=== PATIENT | male | born 1975 | race Caucasian/White ===

== ENCOUNTER 2016-10-21 16:50 | Emergency (ER) | payer OTHER ==
[2016-10-21] MEDS ORDERED: TORAdol 30 mg Injection IV ONE (16:55)
[2016-10-21] MEDS ORDERED: TORAdol 30 mg Injection ONE (16:58)
[2016-10-21] MEDS ORDERED: solu-MEDROL 125 MG IV ONE (16:58)
[2016-10-21] MEDS ORDERED: DUONEB 0.5-3 MG/3 ml Neb IH ONE ×2 (16:58→17:22)
[2016-10-21] MEDS ORDERED: Norflex 60 MG/2 ML IM ONE (17:00)
--- NOTE | 2016-10-21 17:05 | ERPHSYRPT ---
- History of Present Illness Time Seen by Provider: 10/21/16 16:55 Source: patient, EMS Exam Limitations: no limitations Patient Subjective Stated Complaint: states has had back spasms for 2 days Triage Nursing Assessment: back pain. states has had mid/lower back pain for 2 days with intermitent pain down lt leg to foot. no injury. was walking to vehicle and 'couldnt walk anymore and laid down on ground'. no bruising or swelling to back. pain slight relieved with knees flexed. audible wheezes noted. Physician History: patient with increasing lower back pain x 2-3 days; walking carrying a laundry basket when his legs buckled and he went down; pain in middle lower back and radiates down left leg to knee; no paraesthesias; no incontinence; no prior injury; prior hx of lower back pain; no other complaints or injuries; no head or neck trauma Timing/Duration: today (fell), day(s) (2-3 day hx), gradual onset, worse Method of Injury: unknown Quality: aching Back Pain Location: lumbar spine Back Pain Radiation: upper legs (left) Severity of Pain-Max: severe (10) Severity of Pain-Current: moderate (7) Modifying Factors: Improves With: immobilization ( wiht knees bent helps), movement (aggravates), pain medication (helps) Associated Symptoms: lower back pain, muscle spasms, No fever, No urinary incontinence, No loss of bowel control, No constipation, No nausea, No vomiting , No problems urinating, No numbness in legs/feet, No weakness, No sensory/ motor loss, No tingling in legs/feet Previous symptoms: no prior history Allergies/Adverse Reactions: No Known Drug Allergies Allergy (Unverified 10/21/16 16:58) Home Medications: Fluticasone/Salmeterol 115/21 [Advair Hfa 115/21 COMMON CANISTER] 2 puff IH BID 06/02/13 [History] Albuterol Sulfate [Proair Hfa] 8.5 gm IH Q4HPRN PRN 10/21/16 [History] Hx Tetanus, Diphtheria Vaccination/Date Given: Yes Hx Influenza Vaccination/Date Given: No Hx Pneumococcal Vaccination/Date Given: No Immunizations Up to Date: Yes - Review of Systems Constitutional: No Symptoms Eyes: No Symptoms Ears, Nose, & Throat: No Symptoms Respiratory: Cough (chronic ), Wheezing (chronic), No Cyanosis, No Dyspnea, No Dyspnea on 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), No Stridor Cardiac: No Chest Pain, No Palpitations, No Syncope Abdominal/Gastrointestinal: No Abdominal Pain, No Nausea, No Vomiting, No Diarrhea Genitourinary Symptoms: No Dysuria, No Hematuria, No Incontinence, No Urgency, No Urinary Retention, No Testicle Pain Musculoskeletal: Back Pain, Fall (AFTER HAVING BACK PAIN AND LEGS GAVE OUT), No Neck Pain, No Injury, No Myalgias Skin: No Symptoms Neurological: No Focal Weakness, No Headache, No Paralysis, No Parasthesia, No Seizure, No Sensory Changes Psychological: No Symptoms Endocrine: No Symptoms Hematologic/Lymphatic: No Symptoms Immunological/Allergic: No Symptoms - Past Medical History Pertinent Past Medical History: Yes Respiratory History: Asthma - Past Surgical History Past Surgical History: Yes Other Surgical History: rt thumb repair - Social History Smoking Status: Former smoker Exposure to second hand smoke: Yes Alcohol Use: Socially Drug Use: none Patient Lives Alone: No Significant Family History: no pertinent family hx - Nursing Vital Signs Temperature: 98.3 F Temperature Source: Oral Pulse Rate: 95 Respiratory Rate: 18 Blood Pressure: 169/108 Pain Intensity: 7 - Physical Exam General Appearance: severe distress (BACK PAIN), alert, obese Eye Exam: PERRL/EOMI, eyes nml inspection Ears, Nose, Throat Exam: normal ENT inspection, TMs normal, pharynx normal, moist mucous membranes Neck Exam: normal inspection, non-tender, supple, full range of motion, No meningismus, No JVD, No subcutaneous emphysema Respiratory Exam: respiratory distress (MILD TACHYPNEA), airway intact, diminished breath sounds, prolonged expirations, wheezing (DIFFUSE), No normal breath sounds, No chest tenderness, No stridor Cardiovascular Exam: regular rate/rhythm, normal heart sounds, normal peripheral pulses, capillary refill <2 sec, No murmur Gastrointestinal Exam: soft, normal bowel sounds, distention (SOFT), No tenderness, No mass, No guarding, No rebound, No organomegaly Male [place] Exam: normal genitalia Rectal Exam: deferred Back Exam: normal inspection, decreased range of motion, muscle spasm ( BILATERAL LOWER LUMBAR), No normal range of motion (DECREASED DUE TO PAIN AND SPASM), No CVA tenderness, No vertebral tenderness, No rash, No point tenderness Extremity Exam: normal inspection, pelvis stable, other, No normal range of motion (decreased straight leg raising L>R; ), No parasthesia, No paralysis, No lauryn's sign, No joint swelling, No pedal edema, No tenderness Neurologic Exam: alert, oriented x 3, cooperative, 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, normal mood/affect, sensation nml, other (DTR's 4+ bilateral; no clonus), No nml station & gait (pain), No motor deficits, No motor weakness Skin Exam: normal color, warm, dry, No rash, No petechiae SpO2: 95 Oxygen Delivery: Room Air - Course Nursing assessment & vital signs reviewed: Yes - Radiology Exams L-Spine X-ray Interpretation: Interpreted by me, Negative, No Fracture Ordered Tests: Active Orders 24 hr Category Date Time Status IV Insertion STAT Care 10/21/16 16:55 Active Re-Check Vital Signs STAT Care 10/21/16 16:55 Active LUMBAR COMPLETE (MIN 4 VIEWS) Stat Exams 10/21/16 16:55 Taken Peak Expiratory Flow Rate ONCE RT 10/21/16 16:58 Completed Respiratory Nebulizer STAT RT 10/21/16 16:58 Completed Medication Summary Discontinued Medications Generic Name Dose Route Start Last Admin Trade Name Freq PRN Reason Stop Dose Admin Albuterol/Ipratropium 3 ml 10/21/16 16:58 10/21/16 17:26 Duoneb 0.5-3 Mg/3 Ml Neb IH 10/21/16 16:59 3 ml STAT ONE Administration Albuterol/Ipratropium Confirm 10/21/16 17:22 Duoneb 0.5-3 Mg/3 Ml Neb Administered 10/21/16 17:23 Dose 3 ml IH .STK-MED ONE Hydromorphone HCl 1 mg 10/21/16 17:47 10/21/16 17:52 Dilaudid 1 Mg/Ml Injection IV 10/21/16 17:48 1 mg STAT ONE Administration Hydromorphone HCl Confirm 10/21/16 17:50 Dilaudid 1 Mg/Ml Injection Administered 10/21/16 17:51 Dose 1 mg .ROUTE .STK-MED ONE Ketorolac Tromethamine 60 mg 10/21/16 16:55 10/21/16 17:00 Toradol 30 Mg Injection IV 10/21/16 16:56 60 mg STAT ONE Administration Ketorolac Tromethamine Confirm 10/21/16 16:58 Toradol 30 Mg Injection Administered 10/21/16 16:59 Dose 60 mg .ROUTE .STK-MED ONE Methylprednisolone Sodium Succinate 125 mg 10/21/16 16:58 10/21/16 17:22 Solu-Medrol 125 Mg IV 10/21/16 16:59 125 mg STAT ONE Administration Methylprednisolone Sodium Succinate Confirm 10/21/16 17:06 Solu-Medrol 125 Mg Administered 10/21/16 17:07 Dose 125 mg .ROUTE .STK-MED ONE Orphenadrine Citrate 60 mg 10/21/16 17:00 10/21/16 17:22 Norflex 60 Mg/2 Ml IM 10/21/16 17:01 60 mg STAT ONE Administration Orphenadrine Citrate Confirm 10/21/16 17:06 Norflex 60 Mg/2 Ml Administered 10/21/16 17:07 Dose 60 mg .ROUTE .STK-MED ONE - Progress Progress: improved (after meds), re-examined (after xr and meds) Progress Note: 10/21/16 17:08 examined; meds ordered; xr ordered; arrived; patient to xr; will recheck after return 10/21/16 17:29 at bedside; some releif of pain wiht meds; patient still wheezing so given a Duoneb treamtne; XR negative - results shared with patient and ; will recheck 10/21/16 17:47 recheck post resp tx and peak floow imporved from 150 to 260; wheezing and resp distress resolved; back pain improvong but exacerbates with movement; will medicate and recheck; 10/21/16 18:06 recheck and pain much improved; can straighten legs and smile; instructions given; questions answered;will d/c at bedside Counseled pt/family regarding: diagnosis, need for follow-up, rad results - Departure Time of Disposition: 18:07 Departure Disposition: Home Clinical Impression: Asthma, Back pain with left-sided sciatica Condition: Good Critical Care Time: No Referrals: MITCHELL PETERSON [Primary Care Provider] - Instructions: Low Back Pain Additional Instructions: Back pain instructions. Rest, ice x 24-48 hours, then warm compresses; no heavy lifting (>20#'s) x 3-5 days; call [facility] or [facility] Med doctor in am for follow up appointment and or referral as needed. Return if problems. Take meds as prescribed. Follow-up with family doctor as directed. Call for appointment. Return if any problems. If you smoke please stop. Call or follow up with your family doctor for assistance if you need it to stop. Please wear your seatbelt when driving. Have a nice day. Thank you for allowing us to participate in your care today. :o) Dr Jake Ellington Prescriptions: Chlorzoxazone [Parafon Forte Dsc] 500 mg PO QID #20 tablet Hydrocodone/Ibuprofen [Vicoprofen 200-7.5 mg Tab] 1 each PO Q4-6HPRN PRN #14 tablet PRN Reason: Pain
[2016-10-21] MEDS ORDERED: solu-MEDROL 125 MG ONE (17:06)
[2016-10-21] MEDS ORDERED: Norflex 60 MG/2 ML ONE (17:06)
[2016-10-21] MEDS ORDERED: DILAUDID 1 MG/ML INJECTION IV ONE (17:47)
[2016-10-21] MEDS ORDERED: DILAUDID 1 MG/ML INJECTION ONE (17:50)
[2016-10-21 18:08] VITALS: O2SAT 95
[2016-10-21 18:26] VITALS: BP 133/83; PULSE 80
--- NOTE | 2016-10-22 08:39 | XRAY ---
Indication: Severe low back pain. No known injury. Comparison: None 5 views of the lumbar spine demonstrates 5 lumbar vertebral segments in normal alignment. Oblique views degraded by motion artifact. Mild L5-S1 degenerative disc space narrowing, mild bilateral degenerative facet arthropathy, and suspect bilateral L5 spondylolysis. No acute fracture, subluxation, or suspicious bony lesions. Visualized soft tissues unremarkable. Impression: L5-S1 degenerative disc disease. Suspect bilateral L5 spondylolysis without spondylolisthesis.
== END 2016-10-21 18:26 | disposition home or self-care (01) ==
LOC: ED 16:50
DX: J45.909 Unspecified asthma, uncomplicated (principal); M54.32 Sciatica, left side; M54.9 Dorsalgia, unspecified; M54.5 Low back pain; M62.830 Muscle spasm of back; Z79.899 Other long term (current) drug therapy; R05 Cough; R06.2 Wheezing
CPT/HCPCS: 36000; 72110; 94150; 94640; 96372; 96374; 96375; 99283; J1170; J1885; J2360; J2930

== ENCOUNTER 2018-01-20 09:09 | Inpatient (IN) | payer OTHER ==
[2018-01-20] MEDS ORDERED: DUONEB 0.5-3 MG/3 ml Neb IH ONE ×2 (09:17→09:20)
--- NOTE | 2018-01-20 09:42 | ERPHSYRPT ---
- History of Present Illness Time Seen by Provider: 01/20/18 09:29 Source: patient Exam Limitations: no limitations Patient Subjective Stated Complaint: Cough and "Not feeling well" since Thursday. Increasing SOB today Triage Nursing Assessment: Pt presents to the ED with complaints of SOB since 0500 today. Pt states hx of asthma and states he has not felt normal x2 days. Pt states bilateral shoulder pain, denies chest pain. Skin PWD. Pt appears anxious on arrival. Physician History: The patient is a 42-year-old male complaining of not feeling well for 2 days but this morning he began having increasing shortness of breath. He has a history of asthma and took 2 albuterol treatments earlier. This did not help. He saw [facility] this morning and was noted to have low O2 sat of about 82%. He then comes to the ER. His daughter had been diagnosed with strep throat last week. He now also has a sore throat for 2 days. He's had a mild cough as well. He describes some chest tightness and difficulty breathing today. He has a past medical history of asthma. He believes he did obtain an influenza vaccination for this year. Timing/Duration: day(s) (2) Activities at Onset: none Severity of Dyspnea-Max: moderate Severity of Dyspnea-Current: moderate Possible Cause: occasional episodes, illness exposure Modifying Factors: Improves With: albuterol nebulizer, exertion Associated Symptoms: cough, wheezing Allergies/Adverse Reactions: No Known Drug Allergies Allergy (Verified 01/20/18 09:22) Home Medications: Albuterol Sulfate [Proair Hfa] 8.5 gm IH Q4HPRN PRN 10/21/16 [History] Hx Tetanus, Diphtheria Vaccination/Date Given: Yes Hx Influenza Vaccination/Date Given: Yes Hx Pneumococcal Vaccination/Date Given: No Immunizations Up to Date: Yes - Review of Systems Constitutional: No Fever, No Chills Eyes: No Symptoms Ears, Nose, & Throat: Throat Pain Respiratory: Cough, Dyspnea, Dyspnea on 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), Wheezing Cardiac: No Chest Pain, No Edema, No Syncope Abdominal/Gastrointestinal: No Abdominal Pain, No Nausea, No Vomiting, No Diarrhea Genitourinary Symptoms: No Dysuria Musculoskeletal: No Back Pain, No Neck Pain Skin: No Rash Neurological: No Dizziness, No Focal Weakness, No Sensory Changes Psychological: No Symptoms Endocrine: No Symptoms Hematologic/Lymphatic: No Symptoms Immunological/Allergic: No Symptoms All Other Systems: Reviewed and Negative - Past Medical History Pertinent Past Medical History: Yes Respiratory History: Asthma - Past Surgical History Past Surgical History: Yes Other Surgical History: rt thumb repair - Social History Smoking Status: Former smoker Exposure to second hand smoke: Yes Alcohol Use: Socially Drug Use: none Patient Lives Alone: No Significant Family History: no pertinent family hx - Nursing Vital Signs Nursing Vital Signs: Initial Vital Signs Temperature 99.4 F 01/20/18 09:13 Pulse Rate 130 H 01/20/18 09:13 Respiratory Rate 24 01/20/18 09:13 Blood Pressure 114/72 01/20/18 09:13 O2 Sat by Pulse Oximetry 82 L 01/20/18 09:13 Pain Scale Pain Intensity 0 - Physical Exam General Appearance: moderate distress Eye Exam: PERRL/EOMI Ears, Nose, Throat Exam: pharyngeal erythema Neck Exam: normal inspection, supple Respiratory Exam: diminished breath sounds, prolonged expirations, wheezing Cardiovascular/Chest Exam: normal heart sounds, tachycardia Abdominal/Gastrointestinal Exam: soft, No tenderness, No distention, No mass Rectal Exam: not done Extremity Exam: non-tender, normal range of motion, normal inspection, no calf tenderness, no pedal edema Neurologic Exam: alert, oriented x 3, cooperative, byproducts operator II-XII nml as tested, sensation nml, No motor deficits Skin Exam: normal color, warm, No dry SpO2 Interpretation: normal SpO2: 82 Oxygen Delivery: Room Air - Course EKG Interpreted by Me: Sinus Tach, NORMAL AXIS, NORMAL INTERVALS, NORMAL QRS, NORMAL ST-T - Radiology Exams Chest X-ray Interpretation: Reviewed by me, Teleradiologist Report, Negative (per DR Andrade.) Ordered Tests: Active Orders 24 hr Category Date Time Status Family And Consumer Education Teacher STAT Care 01/20/18 09:44 Active EKG-ER Only STAT Care 01/20/18 09:43 Active IV Insertion STAT Care 01/20/18 09:43 Active Oxygen-ED Only NASAL CANNULA 4 lpm Care 01/20/18 09:43 Active Pulse Oximetry (ED) STAT Care 01/20/18 09:43 Active CHEST 2 VIEWS (PA AND LAT) Stat Exams 01/20/18 10:07 Completed BLOOD CULTURE Stat Lab 01/20/18 10:15 Received CBC W DIFF Stat Lab 01/20/18 09:20 Completed CMP Stat Lab 01/20/18 09:20 Completed CULTURE, THROAT Stat Lab 01/20/18 10:15 Received Lactic Acid Stat Lab 01/20/18 09:50 Results STREP SCREEN-BETA A Stat Lab 01/20/18 10:15 Completed Respiratory Nebulizer STAT RT 01/20/18 09:20 Completed Respiratory Nebulizer STAT RT 01/20/18 11:07 Ordered Medication Summary Discontinued Medications Generic Name Dose Route Start Last Admin Trade Name [place] PRN Reason Stop Dose Admin Albuterol Sulfate 2.5 mg 01/20/18 11:07 Proventil 2.5 Mg/3 Ml Neb IH 01/20/18 11:08 STAT ONE Albuterol/Ipratropium 3 ml 01/20/18 09:20 01/20/18 09:23 Duoneb 0.5-3 Mg/3 Ml Neb IH 01/20/18 09:21 3 ml STAT ONE Administration Albuterol/Ipratropium Confirm 01/20/18 09:17 Duoneb 0.5-3 Mg/3 Ml Neb Administered 01/20/18 09:18 Dose 3 ml IH .STK-MED ONE Sodium Chloride 1,000 mls @ 999 mls/hr 01/20/18 09:56 01/20/18 10:09 Sodium Chloride 0.9% 1000 Ml IV 01/20/18 10:56 999 mls/hr .Q1H1M STA Administration Sodium Chloride Confirm 01/20/18 10:07 Sodium Chloride 0.9% 1000 Ml Administered 01/20/18 10:08 Dose 1,000 mls @ ud .ROUTE .STK-MED ONE Methylprednisolone Sodium Succinate 125 mg 01/20/18 09:43 01/20/18 09:51 Solu-Medrol 125 Mg IV 01/20/18 09:44 125 mg STAT ONE Administration Methylprednisolone Sodium Succinate Confirm 01/20/18 09:50 Solu-Medrol 125 Mg Administered 01/20/18 09:51 Dose 125 mg .ROUTE .STK-MED ONE Lab/Rad Data: Laboratory Result Diagrams 01/20/18 09:20 01/20/18 09:20 Laboratory Results 01/20/18 01/20/18 01/20/18 Range/Units 10:15 10:15 09:50 WBC (4.0-10.5) K/mm3 RBC (4.1-5.6) M/mm3 Hgb (12.5-18.0) gm/dl Hct (42-50) % MCV (78-100) fl MCH (26-32) pg MCHC (32-36) g/dl RDW (11.5-14.0) % Plt Count (150-450) K/mm3 MPV (6-9.5) fl Gran % (36.0-66.0) % Eos # (Auto) (0-0.5) Absolute Lymphs (auto) (1.0-4.6) Absolute Monos (auto) (0.0-1.3) Lymphocytes % (24.0-44.0) % Monocytes % (0.0-12.0) % Eosinophils % (0.00-5.0) % Basophils % (0.0-0.4) % Absolute Granulocytes (1.4-6.9) Basophils # (0-0.4) Sodium (137-145) mmol/L Potassium (3.5-5.1) mmol/L Chloride (98-107) mmol/L Carbon Dioxide (22-30) mmol/L Anion Gap (5-15) MEQ/L BUN (9-20) mg/dL Creatinine (0.66-1.25) mg/dL Estimated GFR ML/MIN Glucose (74-106) mg/dL Lactic Acid 2.7 H (0.4-2.0) Calcium (8.4-10.2) mg/dL Total Bilirubin (0.2-1.3) mg/dL AST (17-59) U/L ALT (0-50) U/L Alkaline Phosphatase (38-126) U/L Serum Total Protein (6.3-8.2) g/dL Albumin (3.5-5.0) g/dL Influenza Type A Ag NEGATIVE (NEGATIVE) Influenza Type B Ag NEGATIVE (NEGATIVE) RSV (PCR) NEGATIVE (Negative) Streptococcus Screen NEGATIVE (Negative) 01/20/18 01/20/18 Range/Units 09:20 09:20 WBC 15.6 H (4.0-10.5) K/mm3 RBC 5.44 (4.1-5.6) M/mm3 Hgb 16.6 (12.5-18.0) gm/dl Hct 49.5 (42-50) % MCV 91.0 (78-100) fl MCH 30.5 (26-32) pg MCHC 33.5 (32-36) g/dl RDW 14.5 H (11.5-14.0) % Plt Count 282 (150-450) K/mm3 MPV 10.3 H (6-9.5) fl Gran % 83.9 H (36.0-66.0) % Eos # (Auto) 0.47 (0-0.5) Absolute Lymphs (auto) 0.92 L (1.0-4.6) Absolute Monos (auto) 1.08 (0.0-1.3) Lymphocytes % 5.9 L (24.0-44.0) % Monocytes % 6.9 (0.0-12.0) % Eosinophils % 3.0 (0.00-5.0) % Basophils % 0.3 (0.0-0.4) % Absolute Granulocytes 13.10 H (1.4-6.9) Basophils # 0.04 (0-0.4) Sodium 140 (137-145) mmol/L Potassium 3.8 (3.5-5.1) mmol/L Chloride 102 (98-107) mmol/L Carbon Dioxide 24 (22-30) mmol/L Anion Gap 17.0 H (5-15) MEQ/L BUN 16 (9-20) mg/dL Creatinine 0.85 (0.66-1.25) mg/dL Estimated GFR > 60.0 ML/MIN Glucose 134 H (74-106) mg/dL Lactic Acid (0.4-2.0) Calcium 10.1 (8.4-10.2) mg/dL Total Bilirubin 0.40 (0.2-1.3) mg/dL AST 38 (17-59) U/L ALT 60 H (0-50) U/L Alkaline Phosphatase 67 (38-126) U/L Serum Total Protein 8.0 (6.3-8.2) g/dL Albumin 4.9 (3.5-5.0) g/dL Influenza Type A Ag (NEGATIVE) Influenza Type B Ag (NEGATIVE) RSV (PCR) (Negative) Streptococcus Screen (Negative) - Progress Progress: improved Air Movement: fair Progress Note: 01/20/18 11:21 Pt given duo neb X 1 and albuterol neb X 2 and solumedrol 125 mg IV with mild improvement. Called Dr Gillespie who is production welder for Dr Peterson. Will admit pt on observation. Blood Culture(s) Obtained: Yes Antibiotics given: No Discussed with Dr.: Kristin Will see patient in: hospital (observation) Counseled pt/family regarding: lab results, diagnosis, rad results - Departure Time of Disposition: 11:20 Departure Disposition: Observation (per Dr Gillespie) Clinical Impression: Asthma Condition: Stable Critical Care Time: No Referrals: MITCHELL PETERSON [Primary Care Provider] -
[2018-01-20] MEDS ORDERED: solu-MEDROL 125 MG IV ONE (09:43)
[2018-01-20] MEDS ORDERED: solu-MEDROL 125 MG ONE (09:50)
[2018-01-20 09:53] LABS: Lactic Acid 2.7 (0.4-2.0)
[2018-01-20] MEDS ORDERED: Sodium Chloride 0.9% 1000 ML 1,000 ML IV STA (09:56)
[2018-01-20] MEDS ORDERED: Sodium Chloride 0.9% 1000 ML 1,000 ML ONE (10:07)
--- NOTE | 2018-01-20 10:15 | XRAY ---
Indication: Short of breath and cough. Comparison: July 28, 2010. PA/lateral chest remains clear again with a few tiny calcified granulomas. Heart and mediastinal structures within normal limits. Bony thorax intact. No new/acute findings.
[2018-01-20 10:21] LABS: BASOPHIL % 0.3 % (0.0-0.4); Basophil (Absolute #) 0.04 (0-0.4); Eosinophil (Absolute #) 0.47 (0-0.5); Granulocytes % 83.9 % (36.0-66.0); Hematocrit 49.5 % (42-50); Hemoglobin 16.6 gm/dl (12.5-18.0); Lymphocyte (Absolute #) 0.92 (1.0-4.6); Lymphocytes % 5.9 % (24.0-44.0); Mean Corpuscular Hemoglobin 30.5 pg (26-32); Mean Corpuscular Hgb Concent. 33.5 g/dl (32-36); Mean Platelet Volume 10.3 fl (6-9.5); Monocyte (Absolute #) 1.08 (0.0-1.3); Monocytes % 6.9 % (0.0-12.0); Platelet Count 282 K/mm3 (150-450); Red Blood Count 5.44 M/mm3 (4.1-5.6); Red Cell Distribution Width 14.5 % (11.5-14.0); White Blood Count 15.6 K/mm3 (4.0-10.5)
[2018-01-20 10:40] LABS: ALBUMIN 4.9 g/dL (3.5-5.0); ALKALINE PHOSPHATASE 67 U/L (38-126); BLOOD UREA NITROGEN 16 mg/dL (9-20); CHLORIDE 102 mmol/L (98-107); Calcium 10.1 mg/dL (8.4-10.2); Carbon Dioxide 24 mmol/L (22-30); Creatinine 1 0.85 mg/dL (0.66-1.25); Glucose 134 mg/dL (74-106); Potassium 3.8 mmol/L (3.5-5.1); SGOT/AST 38 U/L (17-59); SGPT/ALT 60 U/L (0-50); SODIUM 140 mmol/L (137-145)
[2018-01-20 11:03] LABS: INFLUENZA A NEGATIVE (NEGATIVE); INFLUENZA B NEGATIVE (NEGATIVE); RESPIRATORY SYNCTIAL VIRUS NEGATIVE (Negative)
[2018-01-20] MEDS ORDERED: PROVENTIL 2.5 MG/3 ML NEB IH ONE ×2 (11:07→11:24)
[2018-01-20 11:47] LABS: A-aADO2 210; ABG HEMOGLOBIN 15.7; ABG POTASSIUM 4.1 (3.5-5.1); ABG SITE LEFT RADIAL; ALLEN TEST OK? YES; ARTERIAL BLD GAS O2 SATURATION 99.9 % (95-100); ARTERIAL BLOOD GAS BASE EXCESS -2.1 (-2.0-2.0); ARTERIAL BLOOD GAS FIO2 44 %; ARTERIAL BLOOD GAS PCO2 32 mmHg (35-45); ARTERIAL BLOOD GAS PO2 64 mmHg (75-100); ARTERIAL BLOOD GAS pH 7.43 (7.35-7.45); CARBOXYHEMOGLOBIN 1.5 % THgb (0.0-6.9); HCO3- 21.2 (22-28); HGB O2 SAT 97.1 g/dF (94-100); Methhemoglobin 1.3 % (1.4-1.5); paO2 pAO1 0.23
[2018-01-20] MEDS ORDERED: KEFZOL 1 GM/50 ML PREMIX** 1 GM/50 ML IVPB IV ONE (12:56)
[2018-01-20] MEDS ORDERED: PROVENTIL Solution 2.5 MG/0.5 ML IH ONE ×2 (13:07→13:45)
[2018-01-20] MEDS ORDERED: Sodium Chloride 3 ML UD NEBULES IH ONE (13:07)
[2018-01-20] MEDS ORDERED: Zofran 4 MG/2 ML VIAL IV PRN (13:34)
[2018-01-20] MEDS ORDERED: solu-MEDROL 125 MG IV SCH (13:34)
[2018-01-20] MEDS ORDERED: Ativan 2 MG/1 ML VIAL ONE (14:03)
[2018-01-20] MEDS: Ativan 2 MG/1 ML VIAL IV PRN ×3 (14:05→22:35)
[2018-01-20] MEDS: Aminophylline 500 MG/20 ML*** 500 MG in Sodium Chloride 0.9% 500 ML 500 ML IV SCH (14:14)
[2018-01-20] MEDS: solu-MEDROL 125 MG IV SCH ×3 (14:19→23:42)
[2018-01-20] MEDS ORDERED: PROVENTIL 2.5 MG/3 ML NEB IH PRN (14:24)
[2018-01-20] MEDS ORDERED: PROVENTIL 2.5 MG/3 ML NEB IH SCH (15:00)
[2018-01-20 15:50] LABS: Amphetamine,Urine NEGATIVE (NEGATIVE); Barbiturate,Urine NEGATIVE (NEGATIVE); Benzodiazepine,Urine NEGATIVE (NEGATIVE); Cocaine,Urine NEGATIVE (NEGATIVE); Methadone,Urine NEGATIVE (NEGATIVE); Opiate,Urine NEGATIVE (NEGATIVE); PCP,Urine NEGATIVE (NEGATIVE); THC,Urine NEGATIVE (NEGATIVE)
[2018-01-20] MEDS: DUONEB 0.5-3 MG/3 ml Neb IH SCH ×3 (16:03→23:20)
[2018-01-20 16:22] LABS: Appearance CLEAR (CLEAR); Bilirubin NEGATIVE (NEGATIVE); Blood NEGATIVE Ery/ul (0-5); Glucose NEGATIVE (NEGATIVE); Ketones SMALL (NEGATIVE); Leukocyte Esterase NEGATIVE (NEGATIVE); Nitrite NEGATIVE (NEGATIVE); Protein,Urine Dip NEGATIVE (Negative); Urobilinogen NORMAL mg/dL (0-1)
--- NOTE | 2018-01-20 18:13 | PCM.HP ---
History of Present Illness - Chief Complaint Chief Complaint: STATUS ASTHMATICUS Date: 01/20/18 History of Present Illness: is a 42 year old male. with history of asthma who was out of his rescue inhaler and had felt like he had a cold for the last few days and had been taking nyquil. 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 He denies any fever chills nausea or vomiting. He denies any known exposures. He is currently drowsy in the ICU on the bipap after receiving ativan and thus limiting the history which was supplemented by his nurse, respiratory therapist and the chart review. - Review of Systems Constitutional: Other (limited to HPI secondary to his critical illness) Medications & Allergies Home Medications: Home Medication List Albuterol Sulfate [Proair Hfa] 8.5 gm IH Q4HPRN PRN 10/21/16 [History Confirmed 01/20/18] Allergies/Adverse Reactions: Allergies Allergy/AdvReac Type Severity Reaction Status Date / Time No Known Drug Allergies Allergy Verified 01/20/18 09:22 - Past Medical History Past Medical History: Yes Respiratory History: Asthma - Past Surgical History Past Surgical History: Yes Other Surgical History: rt thumb repair - Social History Smoking Status: Former smoker Exposure to second hand smoke: Yes Alcohol: None Drug Use: none Significant Family History: no pertinent family hx - Physical Exam Vital Signs: Vital Signs - 24 hr Temp Pulse Resp BP Pulse Ox 01/20/18 16:03 113 H 30 H 98 01/20/18 16:00 98 F 117 H 21 136/83 97 01/20/18 13:35 99.4 F 124 H 30 H 156/83 96 01/20/18 13:34 98 01/20/18 13:10 124 H 32 H 87 L 01/20/18 12:46 120 H 25 H 106/68 91 L 01/20/18 11:50 91 L 01/20/18 11:32 82 L 01/20/18 11:26 129 H 25 H 120/74 91 L 01/20/18 10:30 127 H 20 117/73 92 L 04/18/18 09:53 94 L 01/20/18 09:28 27 H 88 L 01/20/18 09:24 132 H 26 H 90 L 01/20/18 09:13 99.4 F 130 H 24 114/72 82 L Oxygen-Last 24 hours O2 Percentage 100% O2 Percentage 40% O2 Percentage 40% O2 Percentage 6 Liters = 44% O2 Percentage 4 Liters = 36% General Appearance: moderate distress Neurologic Exam: oriented x 3, academic support director II-XII nml as tested, other (drowsy), No motor deficits Eye Exam: PERRL/EOMI, No scleral icterus, No pale conjunctivae Ears, Nose, Throat Exam: dry mucous membranes Neck Exam: normal inspection, non-tender, supple Respiratory Exam: respiratory distress, diminished breath sounds, accessory muscle use, prolonged expirations, wheezing Cardiovascular Exam: tachycardia, No murmur, No edema Gastrointestinal/Abdomen Exam: soft, normal bowel sounds, No tenderness, No distention Extremity Exam: normal inspection, No calf tenderness, No pedal edema Skin Exam: warm, dry, No rash Results - Labs Lab/Micro Results: Lab Results-Last 24 Hours 01/20/18 01/20/18 Range/Units Unknown Unknown Ur Collection Type CCMS Urine Color YELLOW (YELLOW) Urine Appearance CLEAR (CLEAR) Urine pH 5.0 (5-6) Ur Specific [place] 1.010 (1.005-1.025) Urine Protein NEGATIVE (Negative) Urine Ketones SMALL (NEGATIVE) Urine Blood NEGATIVE (0-5) Jaime/ul Urine Nitrite NEGATIVE (NEGATIVE) Urine Bilirubin NEGATIVE (NEGATIVE) Urine Urobilinogen NORMAL (0-1) mg/dL Ur Leukocyte Esterase NEGATIVE (NEGATIVE) Urine Glucose NEGATIVE (NEGATIVE) mg/dL Urine Opiates Level NEGATIVE (NEGATIVE) Ur Methadone NEGATIVE (NEGATIVE) Urine Barbiturates NEGATIVE (NEGATIVE) Ur Phencyclidine (PCP) NEGATIVE (NEGATIVE) Urine Amphetamine NEGATIVE (NEGATIVE) U Benzodiazepine Level NEGATIVE (NEGATIVE) Urine Cocaine NEGATIVE (NEGATIVE) Urine Marijuana (THC) NEGATIVE (NEGATIVE) Specimen Received 01-20-18 1620 - Other Procedures and Tests Respiratory Therapy 01/20/18 14:27 Respiratory Nebulizer 01/20/18 14:28 Oxygen High Flow High Flow 40 lpm 01/20/18 15:00 Respiratory Nebulizer Q4H 01/20/18 16:16 BiPap/CPAP Assessment 01/21/18 07:00 Respiratory MDI BID Assessment/Plan (1) Status asthmaticus Current Visit: Yes Status: Acute Qualifiers: Asthma severity: severe Assessment & Plan: He was evaluated in ED and had hypoxia that failed high flow nasal cannule oxygen. Dr. Ceja was consulted from ED and saw him for admission who recommends continue bipap that is currently set with FiO2 at 100% with currently oxygen 98% on pulse ox but still intermittently dipping in the low 90' s with tachycardia tachypnea and abdominal breathing that are all improving tachypnea now in the mid 20's from the mid 30's on presentation he has received solumdreol duonebs Dr. Pena recommended against antibiotics at this time during his physical exam and wished to try theophylline gtt which is currently running. He is now showing slow trend toward improvement but is still in critical condition and at high risk of need for intubation if any worsening Code(s): J45.902 - UNSPECIFIED ASTHMA WITH STATUS ASTHMATICUS
[2018-01-21] MEDS: Aminophylline 500 MG/20 ML*** 500 MG in Sodium Chloride 0.9% 500 ML 500 ML IV SCH ×3 (00:14→23:56)
[2018-01-21] MEDS: DUONEB 0.5-3 MG/3 ml Neb IH SCH ×6 (03:46→23:20)
[2018-01-21] MEDS: solu-MEDROL 125 MG IV SCH ×4 (05:59→23:22)
[2018-01-21 06:00] LABS: Hematocrit 45.1 % (42-50); Hemoglobin 15.2 gm/dl (12.5-18.0); Mean Cell Volume 91.5 fl (78-100); Mean Corpuscular Hemoglobin 30.8 pg (26-32); Mean Corpuscular Hgb Concent. 33.7 g/dl (32-36); Mean Platelet Volume 10.3 fl (6-9.5); Platelet Count 269 K/mm3 (150-450); Red Blood Count 4.93 M/mm3 (4.1-5.6); Red Cell Distribution Width 14.7 % (11.5-14.0); White Blood Count 21.5 K/mm3 (4.0-10.5)
[2018-01-21 06:03] LABS: ANION GAP 15.7 MEQ/L (5-15); BLOOD UREA NITROGEN 16 mg/dL (9-20); CHLORIDE 104 mmol/L (98-107); Calcium 9.5 mg/dL (8.4-10.2); Carbon Dioxide 23 mmol/L (22-30); Creatinine 1 0.63 mg/dL (0.66-1.25); Glucose 170 mg/dL (74-106); Potassium 4.1 mmol/L (3.5-5.1); SODIUM 138 mmol/L (137-145)
[2018-01-21] MEDS: Advair Hfa 230/21 Mcg COMMON CANISTER IH SCH ×2 (07:26→19:26)
--- NOTE | 2018-01-21 07:44 | CONS ---
CONSULT DATE: 01/20/2018 HISTORY: Jony Simpson is a 42 year-old male with history of asthma all of his life, poorly compliant with recommended therapy, who was brought into the emergency room of [facility] with complaints of increasing shortness of breath for the past two to three days. The patient was noted to have significant clinical bronchospasm. He was treated with antibiotics, steroids, bronchodilators. He had two blood gases drawn with saturation of 82% on room air that showed persistent hypoxemia. He has now been admitted to ICU. At the time of my evaluation the patient is on BiPAP. He attempts to talk but obviously his speech is somewhat difficult to understand. He has accessory muscles prominent but given his young age he is relatively able to compensate well. According to parents who are in the room, the patient has had asthma since childhood. He has had three to four hospitalizations including intubation history. However they are unable to give any additional details. The patient is only on Albuterol inhaler as needed. He works in a [employer] in [place]. He was on Advair but had been poorly compliant with that. PAST MEDICAL HISTORY: As above. The patient denies current medical problems. PAST SURGICAL HISTORY: No recent surgery. PERSONAL AND SOCIAL HISTORY: As above. He is a former smoker. He drinks alcohol socially. MEDICATIONS: Medications were reviewed. ALLERGIES: NKDA. PHYSICAL EXAMINATION: This is a middle aged male who appears mild to moderately tachypneic on BIPAP. Currently afebrile. VITAL SIGNS: Heart rate 120, blood pressure 156/83. Saturating 98 to 100% on BIPAP. HEENT: Normocephalic. Oral exam somewhat limited. NECK: Accessory muscles of respiration are prominent. CVS: First and second heart sounds with tachycardia. RESPIRATORY: Shows diminished breath sounds with fairly diffuse bilateral rhonchi heard. ABDOMEN: Soft. EXTREMITIES: No significant edema is noted. LABORATORY DATA AND TESTS: Lactic acid 1.7. D-dimer is 506. The pH 7.43, pCO2 32 and pO2 64. White blood cell count 15.6, hemoglobin 16.6, hematocrit 49, PLT 283,000. Eosinophil 3%. Sodium 140, potassium 3.8, chloride 102, bicarb 24, glucose 134, BUN 16, creatinine 0.8. Original lactic acid was 2.7. Strep was negative. Influenza negative. Chest x-ray has been unremarkable. ASSESSMENT: This is a 42 year old male with history of bronchial asthma admitted with: 1) Acute exacerbation. 2) Acute hypoxic respiratory failure secondary to above. 3) Anxiety. RECOMMENDATIONS: The patient is admitted to ICU. Will start the patient on IV aminophylline drip with a loading dose discussed with pharmacy. Increase Solu-Medrol to 125 every six hours four doses and then drop the dose to 80 mg every six hours. Will require controller medication which will be added and continue BIPAP, will start the patient on Ativan 1 mg IV every six hours PRN to treat anxiety and hopefully improve gas exchange with some sleep. Check urine tox screen. PFT when clinically stable and is discharged. Further recommendations pending clinical improvement. Thank you for allowing me to participate in the care of Jony Simpson.
[2018-01-21] MEDS: ENOXAPARIN SODIUM SQ SCH (12:46)
[2018-01-21] MEDS: Ativan 2 MG/1 ML VIAL IV PRN (23:23)
[2018-01-22] MEDS: DUONEB 0.5-3 MG/3 ml Neb IH SCH ×6 (03:35→22:45)
[2018-01-22] MEDS: solu-MEDROL 125 MG IV SCH (05:37)
[2018-01-22 06:05] LABS: Hematocrit 40.7 % (42-50); Hemoglobin 13.3 gm/dl (12.5-18.0); Mean Cell Volume 93.3 fl (78-100); Mean Corpuscular Hemoglobin 30.5 pg (26-32); Mean Corpuscular Hgb Concent. 32.7 g/dl (32-36); Mean Platelet Volume 10.3 fl (6-9.5); Platelet Count 291 K/mm3 (150-450); Red Blood Count 4.36 M/mm3 (4.1-5.6); Red Cell Distribution Width 14.9 % (11.5-14.0); White Blood Count 22.8 K/mm3 (4.0-10.5)
[2018-01-22 06:14] LABS: ALBUMIN 3.8 g/dL (3.5-5.0); ALKALINE PHOSPHATASE 45 U/L (38-126); ANION GAP 12.3 MEQ/L (5-15); BLOOD UREA NITROGEN 18 mg/dL (9-20); CHLORIDE 105 mmol/L (98-107); Carbon Dioxide 25 mmol/L (22-30); Creatinine 1 0.79 mg/dL (0.66-1.25); Glucose 152 mg/dL (74-106); Potassium 3.7 mmol/L (3.5-5.1); SGOT/AST 22 U/L (17-59); SGPT/ALT 41 U/L (0-50); SODIUM 138 mmol/L (137-145); Total Protein 6.6 g/dL (6.3-8.2)
[2018-01-22] MEDS ORDERED: Sodium Chloride 0.9% 10 ML FLUSH Syringe IV PRN (07:01)
[2018-01-22] MEDS: Advair Hfa 230/21 Mcg COMMON CANISTER IH SCH ×2 (07:01→18:41)
[2018-01-22] MEDS ORDERED: PHARMACY DOSING REQUEST MC ONE (07:06)
--- NOTE | 2018-01-22 08:37 | XRAY ---
Indication: Short of breath. Asthma. Comparison: January 20, 2018. PA/lateral chest demonstrates interval developing mild lingular and right middle lobe infiltrate/atelectasis with tiny bibasilar effusions. Heart is not enlarged.
[2018-01-22] MEDS: THEOPHYLLINE ER 24HR PO SCH (08:44)
[2018-01-22] MEDS: ENOXAPARIN SODIUM SQ SCH (09:17)
[2018-01-22] MEDS: ROCEPHIN 1 Gm-D5w 50 ml Bag** 1 G/50 ML IVPB IV SCH (09:17)
[2018-01-22] MEDS: Zithromax 500 MG/ 250 ML NaCl Premix 500 MG/250 ML IVPB IV SCH (10:00)
[2018-01-22] MEDS: solu-MEDROL 40 MG IV SCH ×2 (14:17→21:53)
[2018-01-22] MEDS: TYLENOL 325 MG PO PRN (14:21)
[2018-01-23] MEDS: DUONEB 0.5-3 MG/3 ml Neb IH SCH ×3 (03:02→10:35)
[2018-01-23] MEDS: TYLENOL 325 MG PO PRN (03:55)
[2018-01-23 05:56] LABS: Granulocyte Absolute (ANC) 18.71 (1.4-6.9); Hematocrit 42.5 % (42-50); Hemoglobin 13.9 gm/dl (12.5-18.0); Mean Cell Volume 94.4 fl (78-100); Mean Corpuscular Hemoglobin 30.9 pg (26-32); Mean Corpuscular Hgb Concent. 32.7 g/dl (32-36); Mean Platelet Volume 9.9 fl (6-9.5); Platelet Count 294 K/mm3 (150-450); Red Cell Distribution Width 15.3 % (11.5-14.0); White Blood Count 21.3 K/mm3 (4.0-10.5)
[2018-01-23] MEDS: solu-MEDROL 40 MG IV SCH ×2 (06:03→13:32)
[2018-01-23 06:22] LABS: ANION GAP 14.4 MEQ/L (5-15); BLOOD UREA NITROGEN 17 mg/dL (9-20); CHLORIDE 103 mmol/L (98-107); Calcium 9.4 mg/dL (8.4-10.2); Carbon Dioxide 24 mmol/L (22-30); Creatinine 1 0.73 mg/dL (0.66-1.25); Glucose 136 mg/dL (74-106); Potassium 4.2 mmol/L (3.5-5.1); SODIUM 138 mmol/L (137-145)
[2018-01-23] MEDS: Advair Hfa 230/21 Mcg COMMON CANISTER IH SCH (06:30)
[2018-01-23 06:50] LABS: Lymphocytes 8 % (24-44); Monocyte 4 % (0.0-12.0); Neutrophils 88 % (36.-66.); Platelet Estimate NORMAL (NORMAL); Total Cells Counted 100
[2018-01-23] MEDS: ENOXAPARIN SODIUM SQ SCH (10:32)
[2018-01-23] MEDS: ROCEPHIN 1 Gm-D5w 50 ml Bag** 1 G/50 ML IVPB IV SCH (10:32)
[2018-01-23] MEDS: THEOPHYLLINE ER 24HR PO SCH (10:33)
[2018-01-23] MEDS: Zithromax 500 MG/ 250 ML NaCl Premix 500 MG/250 ML IVPB IV SCH (11:23)
--- NOTE | 2018-01-23 13:19 | PCM.DS ---
Discharge Summary Date of Admission: 01/20/18 13:32 Admitting Physician: MITCHELL PETERSON Primary Care Provider: MITCHELL PETERSON Allergies Allergies No Known Drug Allergies Allergy (Verified 01/20/18 09:22) Hospital Summary - Hospital Course Hospital Course: Admitted through ER with several days of "cold" symptoms, difficulty breathing with hx asthma and found to be hypoxemic in [facility]. Dr. Pena was consulted. Pt stayed on bipap in the ICU initially. Repeat CXR showed lingula/ RML infiltrates vs atelectasis bilat. Is now doing much better, off of all O2 for the past 24+ hours. Just has a little wheezing but pt is feeling ready to go home. RT reports that he was wheezy for both nebulizer treatments this morning. Pt was started on theophylline by Dr. Ceja. - Vitals & Intake/Output Vital Signs: Vital Signs Temperature 97.9 F 01/23/18 11:18 Pulse Rate 101 H 01/23/18 11:18 Respiratory Rate 18 01/23/18 11:18 Blood Pressure 122/62 01/23/18 11:18 O2 Sat by Pulse Oximetry 91 L 01/23/18 11:18 Oxygen-Last Documented O2 Percentage 2 Liters = 28% Intake & Output: Intake & Output 01/21/18 01/22/18 01/23/18 01/24/18 11:59 11:59 11:59 11:59 Intake Total 1226 1767 2300 240 Output Total 2000 1300 Balance -032 527 1173 240 Weight 87.09 kg 87.09 kg - Lab Result Diagrams: 01/23/18 05:30 01/23/18 05:50 Lab Results-Last 24 Hrs: Lab Results-Last 24 Hours 01/23/18 01/23/18 01/23/18 Range/Units 05:30 05:50 05:50 WBC 21.3 H (4.0-10.5) K/mm3 RBC 4.50 (4.1-5.6) M/mm3 Hgb 13.9 (12.5-18.0) gm/dl Hct 42.5 (42-50) % MCV 94.4 (78-100) fl MCH 30.9 (26-32) pg MCHC 32.7 (32-36) g/dl RDW 15.3 H (11.5-14.0) % Plt Count 294 (150-450) K/mm3 MPV 9.9 H (6-9.5) fl Absolute Granulocytes 18.71 H (1.4-6.9) Segmented Neutrophils 88 H (36.-66.) % Lymphocytes (Manual) 8 L (24-44) % Monocytes (Manual) 4 (0.0-12.0) % Platelet Estimate NORMAL (NORMAL) RBC Morphology NORMAL Sodium 138 (137-145) mmol/L Potassium 4.2 (3.5-5.1) mmol/L Chloride 103 (98-107) mmol/L Carbon Dioxide 24 (22-30) mmol/L Anion Gap 14.4 (5-15) MEQ/L BUN 17 (9-20) mg/dL Creatinine 0.73 (0.66-1.25) mg/dL Estimated GFR > 60.0 ML/MIN Glucose 136 H (74-106) mg/dL Calcium 9.4 (8.4-10.2) mg/dL Theophylline 10.7 (10-20) ug/mL - Radiology Exams Ordered Rad Exams-Entire Visit: Radiology Procedures Category Date Time Status CHEST 2 VIEWS (PA AND LAT) Urgent Exams 01/22/18 07:51 Completed - Procedures and Test Procedures and Tests throughout Hospitalization: Therapy Orders & Screens 01/20/18 13:34 Oxygen OXYMASK-LPM 10% Comment: Diagnosis: Shortness of Breath 01/20/18 14:12 Respiratory Nebulizer STAT Comment: Diagnosis: Shortness of Breath 01/20/18 14:27 Respiratory Nebulizer Comment: ALBUTEROL Q2PRN Diagnosis: Shortness of Breath 01/20/18 14:28 Oxygen High Flow High Flow 40 lpm Comment: Diagnosis: Shortness of Breath 01/20/18 15:00 Respiratory Nebulizer Q4H Comment: DUONEB Q4 Diagnosis: Shortness of Breath 01/20/18 16:16 BiPap/CPAP Assessment Comment: Diagnosis: STATUS ASTHMATICUS 01/21/18 07:00 Respiratory MDI BID Comment: JOSE 230/21 BID Diagnosis: Shortness of Breath Discharge Exam General Appearance: no apparent distress, alert Neurologic Exam: oriented x 3, cooperative Skin Exam: normal color, warm, dry, No rash Eye Exam: eyes nml inspection, other (poor to fair eye contact) Ears, Nose, Throat Exam: moist mucous membranes Respiratory Exam: normal breath sounds (good air exchange), lungs clear, wheezing (very faint scattered wheezing), No crackles/rales, No rhonchi Cardiovascular Exam: regular rate/rhythm, normal heart sounds, No murmur Extremity Exam: normal inspection, No pedal edema, No swelling Final Diagnosis/Problem List - Final Discharge Diagnosis/Problem (1) Asthma exacerbation Current Visit: Yes Status: Acute Assessment & Plan: Sounds great for me, but he is still on theophylline po per Dr. Ceja so I will need to discuss with him before considering discharge plan. (2) Pneumonia Current Visit: Yes Status: Acute Assessment & Plan: Home on po augmentin. - Discharge Disposition: Home, Self-Care Condition: Good Prescriptions: No Action Albuterol Sulfate [Proair Hfa] 8.5 gm IH Q4HPRN PRN PRN Reason: resp Follow up with: MITCHELL PETERSON [Primary Care Provider] - 1 Week
--- NOTE | 2018-01-23 14:05 | PCM.DCORD ---
- Discharge Disposition: Home, Self-Care Condition: Good Prescriptions: New Fluticasone/Salmeterol 230/21 [Advair Hfa 230/21 Mcg COMMON CANISTER*] 2 puff IH BIDRT #1 aer.w.adap Amoxicillin/Potassium Clav [Augmentin 875-125 Tablet] 875 mg PO BID #24 tablet Prednisone 20 mg [Deltasone 20 mg] 20 mg PO DAILY #17 tablet Albuterol/Ipratropium 3ml Neb* [DUONEB 0.5-3 MG/3 ml Neb] 3 ml IH QID #60 ampul.neb Albuterol 2.5 mg/3 ml Neb [Proventil 2.5 mg/3 ml Neb] 2.5 mg IH Q4H PRN #120 neb PRN Reason: Shortness Of Breath/Wheezing Theophylline Anhydrous [Theophylline ER 24Hr] 800 mg PO DAILY #14 tab.er.24h Continue Albuterol Sulfate [Proair Hfa] 8.5 gm IH Q4HPRN PRN PRN Reason: resp Follow up with: MITCHELL PETERSON [Primary Care Provider] - 1 Week
[2018-01-23 14:24] VITALS: BP 129/72; PULSE 87; O2SAT 92
== END 2018-01-23 14:30 | disposition home or self-care (01) | DRG 202 ==
LOC: ED 09:09 → ICU 13:32 → OBSVTOIN 13:32 → MED SURG 01-22 10:54
PROVIDERS: ADMIT Family Medicine; ATTEND Family Medicine
DX: J45.902 Unspecified asthma with status asthmaticus (principal); J18.9 Pneumonia, unspecified organism; J96.01 Acute respiratory failure with hypoxia; Z79.899 Other long term (current) drug therapy; Z87.891 Personal history of nicotine dependence; F41.9 Anxiety disorder, unspecified
CPT/HCPCS: 36000; 36415; 36600; 71046; 80048; 80053; 80198; 80307; 81002; 82375; 82785; 82803; 83605; 85025; 85027; 85379; 87040; 87070; 87430; 87631; 93005; 93041; 94002; 94003; 94150; 94640; 94760; 94761; 96360; 99285; J0280; J0456; J0690; J0696; J1650; J2060; J2920; J2930; A9270-GY

== ENCOUNTER 2018-08-08 23:59 | Emergency (ER) | payer OTHER ==
[2018-08-09 00:21] VITALS: BP 122/79; PULSE 104; O2SAT 97
[2018-08-09] MEDS ORDERED: XYLOCAINE 1% HCL 20 ML MDV IJ ONE (00:22)
[2018-08-09] MEDS ORDERED: BACIGUENT PACKET TP ONE (00:22)
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
[2018-08-09] MEDS ORDERED: BACIGUENT PACKET ONE (00:57)
[2018-08-09] MEDS ORDERED: XYLOCAINE 1% HCL 20 ML MDV ONE (00:57)
== END 2018-08-09 01:10 | disposition home or self-care (01) ==
LOC: ED 23:59
DX: S61.216A Laceration without foreign body of right little finger without damage to nail, initial encounter (principal); W01.110A Fall on same level from slipping, tripping and stumbling with subsequent striking against sharp glass, initial encounter
CPT/HCPCS: 12001; 96372; 99283; A9270-GY

== ENCOUNTER 2021-06-29 19:59 | Inpatient (IN) | payer MEDICAID, OTHER ==
[2021-06-29] MEDS ORDERED: solu-MEDROL 125 MG, Sterile H2O 10 ml 2 ML IV ONE ×2 (20:05)
[2021-06-29] MEDS ORDERED: DUONEB 0.5-3 MG/3 ml Neb IH ONE ×2 (20:05→20:08)
[2021-06-29] MEDS ORDERED: solu-MEDROL ONE (20:11)
[2021-06-29] MEDS ORDERED: Sterile H2O 10 ml IJ ONE (20:11)
--- NOTE | 2021-06-29 20:25 | ERPHSYRPT ---
- History of Present Illness Time Seen by Provider: 06/29/21 20:04 Source: patient Exam Limitations: no limitations Patient Subjective Stated Complaint: "I woke up and I just can't breathe." Triage Nursing Assessment: 45 y/o white male with PMH significant for asthma. He reported having nasal congestion on 06/28/21. He awoke this morning 06/29/21 from sleep with chest pain and dyspnea. He reported taking his inhaler multiple times without relief of symptoms. Denied any alleviation throughout the day. He is not vaccinated. he reported his recently had a cold but was not tested for COVID. His is vaccinated. Oral mucosa pink/moist. Neck supple without lymphadenopathy. Symmetrical chest excursion. Heart tones S1/S2 Tachycardic with RRR without extra sounds. mild intercostal retractions noted. Lung soungs with inspiratory/expiratoy wheezes to the upper bilateral lobes and insp/exp wheezes and diminished lung sounds in the bilateral lower lobes. Peripheral pulses +3 bilateral. Abdomen obese non-distended, non-tender, and without peritoneal signs. No noted dependent edema. Physician History: 45 years old male with history of asthma presented in the ER with chief complaint of worsening shortness of breath and cough since morning. Patient report he has been having nasal congestion since yesterday and this morning woke up with increasing shortness of breath initially with activity and now even at r esting. He used his inhaler with no significant relief. Coughing up clear yellowish sputum mild in amount with associated chest tightness and pressure. No fever or chills reported. had similar symptoms. Unvaccinated against COVID-19. Timing/Duration: day(s) (1), constant, gradual onset, worse Activities at Onset: activity, rest Severity of Dyspnea-Max: severe Severity of Dyspnea-Current: severe Possible Cause: occasional episodes Modifying Factors: Worsens With: coughing, exertion Associated Symptoms: cough, chest pain/discomfort, wheezing, productive cough, tightness Allergies/Adverse Reactions: No Known Drug Allergies Allergy (Verified 06/29/21 20:01) Home Medications: Albuterol Sulfate [Proair Hfa] 8.5 gm IH Q4H PRN PRN 08/09/18 [History] Fluticasone/Vilanterol [Breo Ellipta 100-25 Mcg INH] 1 each IH DAILY 08/09/18 [History] Hx Tetanus, Diphtheria Vaccination/Date Given: Yes Hx Influenza Vaccination/Date Given: Yes Hx Pneumococcal Vaccination/Date Given: No Travel Risk - International Travel Have you traveled outside of the country in past 3 weeks: No - Coronavirus Screening Are you exhibiting any of the following symptoms?: Yes Symptoms: Cough: New Onset, Shortness of Breath Close contact with a COVID-19 positive Pt in past 14-21 Days: No - Vaccine Status Have you recieved a Covid-19 vaccination: No - Review of Systems Constitutional: No Symptoms Eyes: No Symptoms Ears, Nose, & Throat: Nose Congestion Respiratory: Cough, Dyspnea, 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 on 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), Wheezing Cardiac: Chest Pain Abdominal/Gastrointestinal: No Symptoms Genitourinary Symptoms: No Symptoms Musculoskeletal: No Symptoms Skin: No Symptoms Neurological: No Symptoms Psychological: No Symptoms Endocrine: No Symptoms Hematologic/Lymphatic: No Symptoms Immunological/Allergic: No Symptoms - Past Medical History Pertinent Past Medical History: Yes Respiratory History: Asthma - Past Surgical History Past Surgical History: Yes Other Surgical History: rt thumb repair - Social History Smoking Status: Former smoker How long have you smoked: 25 Exposure to second hand smoke: Yes Alcohol Use: Socially Drug Use: none Patient Lives Alone: No Significant Family History: no pertinent family hx - Nursing Vital Signs Nursing Vital Signs: Initial Vital Signs Pulse Rate 138 H 06/29/21 19:59 Respiratory Rate 34 H 06/29/21 19:59 Blood Pressure 133/114 06/29/21 19:59 O2 Sat by Pulse Oximetry 80 L 06/29/21 19:59 Pain Scale Pain Intensity 0 - Physical Exam General Appearance: moderate distress, alert Eye Exam: PERRL/EOMI, eyes nml inspection Ears, Nose, Throat Exam: hearing grossly normal, nasal congestion, pharyngeal erythema Neck Exam: normal inspection, non-tender, supple, full range of motion Respiratory Exam: respiratory distress, diminished breath sounds, accessory muscle use, crackles/rales, rhonchi, wheezing Cardiovascular/Chest Exam: normal heart sounds, tachycardia Abdominal/Gastrointestinal Exam: soft, normal bowel sounds Extremity Exam: non-tender, normal range of motion Neurologic Exam: alert, oriented x 3, cooperative, bread molder II-XII nml as tested Skin Exam: normal color SpO2 Interpretation: hypoxic, O2 applied SpO2: 80 O2 Delivery: Room Air - Course EKG Interpreted by Me: RATE ([id number]), Sinus Tach, NORMAL AXIS, NORMAL INTERVALS, Non-specific ST Changes Ordered Tests: Active Orders 24 hr Category Date Time Status TROPONIN Q3H Lab 06/30/21 08:15 Completed Medication Summary Generic Name Dose Route Start Last Admin Trade Name Freq PRN Reason Stop Dose Admin Acetaminophen 650 mg 06/29/21 23:29 Tylenol 325 Mg PO 07/29/21 23:28 Q4H PRN PRN PAIN AND/OR FEVER Albuterol Sulfate 2 puff 06/30/21 09:15 Ventolin Common Canister IH 07/30/21 09:14 Q4H PRN PRN SHORTNESS OF BREATH/WHEEZING Albuterol/Ipratropium 3 ml 06/30/21 11:00 07/01/21 06:48 Duoneb 0.5-3 Mg/3 Ml Neb IH 07/30/21 10:59 3 ml Q4HRT AGUILAR Administration Methylprednisolone Sodium 0 mg 06/30/21 12:00 07/01/21 05:33 Succinate 125 mg/ Sterile IV 07/30/21 11:59 125 mg Water 2 ml Q6HT AGUILAR Administration Enoxaparin Sodium 40 mg 06/30/21 10:00 06/30/21 10:43 Enoxaparin Sodium SQ 07/30/21 09:59 40 mg DAILY AGUILAR Administration Azithromycin 500 mg in 250 mls @ 250 mls/hr 06/30/21 22:00 06/30/21 23:18 Zithromax 500 Mg/ 250 Ml Nacl Premix IV 07/30/21 21:59 250 mls/hr QPM AGUILAR Administration Ceftriaxone Sodium/Dextrose 1 g in 50 mls @ 100 mls/hr 06/30/21 22:00 06/30/21 22:05 Rocephin 1 Gm-D5w 50 Ml Bag IV 07/03/21 21:59 100 mls/hr QPM AGUILAR Administration Sodium Chloride 1,000 mls @ 100 mls/hr 06/29/21 23:29 07/01/21 05:40 Sodium Chloride 0.9% 1000 Ml IV 07/29/21 23:28 100 mls/hr .Q10H AGUILAR Administration Aminophylline 500 mg/ Sodium 500 mls @ 46 mls/hr 06/30/21 10:00 06/30/21 21:10 Chloride IV 07/30/21 09:59 46 ml/hr .[id number] AGUILAR 46 mls/hr Administration Ondansetron HCl 4 mg 06/29/21 23:29 Zofran 4 Mg/2 Ml Vial IV 07/29/21 23:28 Q6H PRN PRN NAUSEA/VOMITING Pantoprazole Sodium 40 mg 06/30/21 10:00 06/30/21 10:42 Protonix 40 Mg Iv IV 07/30/21 09:59 40 mg Q24H10 AGUILAR Administration Fluticasone/Salmeterol 2 puff 06/30/21 07:00 07/01/21 06:51 Advair Hfa 115/21 Common Canister* 07/30/21 06:59 2 puff BIDRT AGUILAR Administration Discontinued Medications Generic Name Dose Route Start Last Admin Trade Name Freq PRN Reason Stop Dose Admin Albuterol/Ipratropium 3 ml 06/29/21 20:05 06/29/21 20:10 Duoneb 0.5-3 Mg/3 Ml Neb IH 06/29/21 20:06 3 ml STAT ONE Administration Albuterol/Ipratropium Confirm 06/29/21 20:08 Duoneb 0.5-3 Mg/3 Ml Neb Administered 06/29/21 20:09 Dose 3 ml IH .STK-MED ONE Albuterol/Ipratropium 3 ml 06/30/21 01:00 06/30/21 07:23 Duoneb 0.5-3 Mg/3 Ml Neb IH 07/30/21 00:59 3 ml Q6HRT AGUILAR Administration Methylprednisolone Sodium 0 mg 06/29/21 20:05 06/29/21 20:12 Succinate 125 mg/ Sterile IV 06/29/21 20:06 125 mg Water 2 ml STAT ONE Administration Methylprednisolone Sodium 0 mg 06/30/21 00:00 06/30/21 05:58 Succinate 60 mg/ Sterile Water IV 07/30/21 00:00 60 mg 2 ml Q6HT AGUILAR Administration Ceftriaxone Sodium/Dextrose 2 g in 50 mls @ 100 mls/hr 06/29/21 21:15 06/29/21 22:28 Rocephin 2 Gm-D5w 50ml Bag IV 06/29/21 21:44 Infused STAT STA Infusion Azithromycin 500 mg in 250 mls @ 250 mls/hr 06/29/21 21:16 06/29/21 22:39 Zithromax 500 Mg/ 250 Ml Nacl Premix IV 06/29/21 22:15 Infused STAT STA Infusion Sodium Chloride 1,000 mls @ 999 mls/hr 06/29/21 21:17 06/29/21 22:39 Sodium Chloride 0.9% 1000 Ml IV 06/29/21 22:17 Infused .Q1H1M STA Infusion Azithromycin Confirm 06/29/21 21:18 Zithromax 500 Mg/ 250 Ml Nacl Premix Administered 06/29/21 21:19 Dose 500 mg in 250 mls @ ud IV .STK-MED ONE Sodium Chloride Confirm 06/29/21 21:18 Sodium Chloride 0.9% 1000 Ml Administered 06/29/21 21:19 Dose 1,000 mls @ ud .ROUTE .STK-MED ONE Ceftriaxone Sodium/Dextrose Confirm 06/29/21 21:18 Rocephin 2 Gm-D5w 50ml Bag Administered 06/29/21 21:19 Dose 2 g in 50 mls @ ud IV .STK-MED ONE Methylprednisolone Sodium Succinate Confirm 06/29/21 20:11 Solu-Medrol Administered 06/29/21 20:12 Dose 125 mg .ROUTE .STK-MED ONE Methylprednisolone Sodium Succinate Confirm 06/30/21 05:55 Solu-Medrol Administered 06/30/21 05:56 Dose 125 mg .ROUTE .STK-MED ONE Non-Formulary Medication 1 each 06/30/21 08:51 06/30/21 09:26 Pharmacy Dosing Request 06/30/21 08:52 1 each STAT ONE Administration Sterile Water Confirm 06/29/21 20:11 Sterile H2o 10 Ml Administered 06/29/21 20:12 Dose 10 ml IJ .STK-MED ONE Sterile Water Confirm 06/30/21 05:56 Sterile H2o 10 Ml Administered 06/30/21 05:57 Dose 10 ml IJ .STK-MED ONE Lab/Rad Data: Laboratory Result Diagrams 06/29/21 20:32 06/29/21 20:32 Laboratory Results 06/29/21 06/29/21 06/29/21 Range/Units 23:23 23:15 21:41 WBC (4.0-10.5) K/mm3 RBC (4.1-5.6) M/mm3 Hgb (12.5-18.0) gm/dl Hct (42-50) % MCV (78-100) fl MCH (26-32) pg MCHC (32-36) g/dl RDW (11.5-14.0) % Plt Count (150-450) K/mm3 MPV (7.5-11.0) fl Gran % (36.0-66.0) % Eos # (Auto) (0-0.5) Absolute Lymphs (auto) (1.0-4.6) Absolute Monos (auto) (0.0-1.3) Lymphocytes % (24.0-44.0) % Monocytes % (0.0-12.0) % Eosinophils % (0.00-5.0) % Basophils % (0.0-0.4) % Absolute Granulocytes (1.4-6.9) Basophils # (0-0.4) D-Dimer (215-500) ng/mL Puncture Site pCO2 (35-45) mmHg pO2 (75-100) mmHg Base Excess (-2.0-2.0) O2 Saturation (94-100) g/dF ABG pH (7.35-7.45) ABG HCO3 (22-28) ABG O2 Sat (Measured) (95-100) % Evelio Test A-a Gradient a/A Ratio Hemoglobin Carboxyhemoglobin (0.0-6.9) % THgb Methemoglobin (1.4-1.5) % Potassium (3.5-5.1) POC O2 Flow Rate % Sodium (137-145) mmol/L Chloride (98-107) mmol/L Carbon Dioxide (23-27) mEq/L Anion Gap (5-15) MEQ/L BUN (9-20) mg/dL Creatinine (0.66-1.25) mg/dL Estimated GFR ML/MIN Glucose (74-106) mg/dL Lactic Acid 3.0 H (0.4-2.0) Calcium (8.4-10.2) mg/dL Magnesium (1.6-2.3) mg/dL Total Bilirubin (0.2-1.3) mg/dL AST (17-59) U/L ALT (0-50) U/L Alkaline Phosphatase (38-126) U/L Troponin I < 0.012 (0.000-0.034) ng/mL NT-Pro-B Natriuret Pep (0-450) pg/mL Serum Total Protein (6.3-8.2) g/dL Albumin (3.5-5.0) g/dL SARS-CoV-2 (PCR) NEGATIVE (NEGATIVE) 06/29/21 06/29/21 06/29/21 Range/Units 20:32 20:32 20:32 WBC (4.0-10.5) K/mm3 RBC (4.1-5.6) M/mm3 Hgb (12.5-18.0) gm/dl Hct (42-50) % MCV (78-100) fl MCH (26-32) pg MCHC (32-36) g/dl RDW (11.5-14.0) % Plt Count (150-450) K/mm3 MPV (7.5-11.0) fl Gran % (36.0-66.0) % Eos # (Auto) (0-0.5) Absolute Lymphs (auto) (1.0-4.6) Absolute Monos (auto) (0.0-1.3) Lymphocytes % (24.0-44.0) % Monocytes % (0.0-12.0) % Eosinophils % (0.00-5.0) % Basophils % (0.0-0.4) % Absolute Granulocytes (1.4-6.9) Basophils # (0-0.4) D-Dimer 439 (215-500) ng/mL Puncture Site pCO2 (35-45) mmHg pO2 (75-100) mmHg Base Excess (-2.0-2.0) O2 Saturation (94-100) g/dF ABG pH (7.35-7.45) ABG HCO3 (22-28) ABG O2 Sat (Measured) (95-100) % Evelio Test A-a Gradient a/A Ratio Hemoglobin Carboxyhemoglobin (0.0-6.9) % THgb Methemoglobin (1.4-1.5) % Potassium 4.2 (3.5-5.1) POC O2 Flow Rate % Sodium 138 (137-145) mmol/L Chloride 99 (98-107) mmol/L Carbon Dioxide 23 (23-27) mEq/L Anion Gap 20.8 H (5-15) MEQ/L BUN 7 L (9-20) mg/dL Creatinine 0.86 (0.66-1.25) mg/dL Estimated GFR > 60.0 ML/MIN Glucose 119 H (74-106) mg/dL Lactic Acid (0.4-2.0) Calcium 9.7 (8.4-10.2) mg/dL Magnesium 1.9 (1.6-2.3) mg/dL Total Bilirubin 0.60 (0.2-1.3) mg/dL AST 31 (17-59) U/L ALT 59 H (0-50) U/L Alkaline Phosphatase 82 (38-126) U/L Troponin I < 0.012 (0.000-0.034) ng/mL NT-Pro-B Natriuret Pep 39.1 (0-450) pg/mL Serum Total Protein 8.7 H (6.3-8.2) g/dL Albumin 5.2 H (3.5-5.0) g/dL SARS-CoV-2 (PCR) (NEGATIVE) 06/29/21 06/29/21 Range/Units 20:32 20:05 WBC 17.0 H (4.0-10.5) K/mm3 RBC 5.46 (4.1-5.6) M/mm3 Hgb 17.4 (12.5-18.0) gm/dl Hct 52.6 H (42-50) % MCV 96.3 (78-100) fl MCH 31.9 (26-32) pg MCHC 33.1 (32-36) g/dl RDW 15.0 H (11.5-14.0) % Plt Count 296 (150-450) K/mm3 MPV 10.0 (7.5-11.0) fl Gran % 86.0 H (36.0-66.0) % Eos # (Auto) 0.24 (0-0.5) Absolute Lymphs (auto) 0.89 L (1.0-4.6) Absolute Monos (auto) 1.23 (0.0-1.3) Lymphocytes % 5.2 L (24.0-44.0) % Monocytes % 7.2 (0.0-12.0) % Eosinophils % 1.4 (0.00-5.0) % Basophils % 0.2 (0.0-0.4) % Absolute Granulocytes 14.59 H (1.4-6.9) Basophils # 0.03 (0-0.4) D-Dimer (215-500) ng/mL Puncture Site RIGHT RADIAL pCO2 26 L (35-45) mmHg pO2 64 L (75-100) mmHg Base Excess -2.1 L (-2.0-2.0) O2 Saturation 91.7 L (94-100) g/dF ABG pH 7.49 H (7.35-7.45) ABG HCO3 19.8 L (22-28) ABG O2 Sat (Measured) 95.4 (95-100) % Evelio Test YES A-a Gradient 617 a/A Ratio 0.09 Hemoglobin Pending Carboxyhemoglobin 2.9 (0.0-6.9) % THgb Methemoglobin 1.0 L (1.4-1.5) % Potassium 4.2 (3.5-5.1) POC O2 Flow Rate 100 % Sodium (137-145) mmol/L Chloride (98-107) mmol/L Carbon Dioxide 20 L (23-27) mEq/L Anion Gap (5-15) MEQ/L BUN (9-20) mg/dL Creatinine (0.66-1.25) mg/dL Estimated GFR ML/MIN Glucose (74-106) mg/dL Lactic Acid 3.0 H (0.4-2.0) Calcium (8.4-10.2) mg/dL Magnesium (1.6-2.3) mg/dL Total Bilirubin (0.2-1.3) mg/dL AST (17-59) U/L ALT (0-50) U/L Alkaline Phosphatase (38-126) U/L Troponin I (0.000-0.034) ng/mL NT-Pro-B Natriuret Pep (0-450) pg/mL Serum Total Protein (6.3-8.2) g/dL Albumin (3.5-5.0) g/dL SARS-CoV-2 (PCR) (NEGATIVE) - Progress Progress: improved, re-examined Air Movement: fair Progress Note: 06/29/21 21:36 45 years old is evaluated for respiratory distress. Patient was hypoxic around 80% on room air, placed on nonrebreather, given DuoNeb and Solu-Medrol, still wheezing and desatting with standing up and activity. Placed on BiPAP. Patient ABG showed hypoxemia. Chest x-ray showed bilateral airspace disease and started on IV antibiotics. Work-up showed white count of 17 chemistry profile showed a gap of 20.8 with tachycardia. Given a fluid bolus. Has normal D-dimer and troponin. EKG sinus tach without any ST elevation but some depression of the lateral leads. Discussed with Dr. Poon, reviewed history work-up, agreed with admission and will give prophylactic dose of Lovenox. Blood Culture(s) Obtained: Yes Antibiotics given: Yes Discussed with : Marv Will see patient in: hospital (full admit) Counseled pt/family regarding: lab results, diagnosis, rad results - Departure Departure Disposition: In-patient Admission Clinical Impression: Respiratory failure Qualifiers: Chronicity: acute Respiratory failure complication: hypoxia Qualified Code(s): J96.01 - Acute respiratory failure with hypoxia Pneumonia Qualifiers: Pneumonia type: due to unspecified organism Laterality: bilateral Lung location: unspecified part of lung Qualified Code(s): J18.9 - Pneumonia, unspecified organism Condition: Good Critical Care Time: Yes Critical Care Time(excluding separately billable procedures): Critical 30-74 mins
[2021-06-29 20:38] LABS: Absolute Neutrophil Ct (ANC) 14.59 (1.4-6.9); BASOPHIL % 0.2 % (0.0-0.4); Basophil (Absolute #) 0.03 (0-0.4); Eosinophil % 1.4 % (0.00-5.0); Eosinophil (Absolute #) 0.24 (0-0.5); Hematocrit 52.6 % (42-50); Hemoglobin 17.4 gm/dl (12.5-18.0); Lymphocyte (Absolute #) 0.89 (1.0-4.6); Lymphocytes % 5.2 % (24.0-44.0); Mean Cell Volume 96.3 fl (78-100); Mean Corpuscular Hemoglobin 31.9 pg (26-32); Mean Corpuscular Hgb Concent. 33.1 g/dl (32-36); Monocyte (Absolute #) 1.23 (0.0-1.3); Monocytes % 7.2 % (0.0-12.0); Platelet Count 296 K/mm3 (150-450); Red Blood Count 5.46 M/mm3 (4.1-5.6)
[2021-06-29 21:07] LABS: ALBUMIN 5.2 g/dL (3.5-5.0); ALKALINE PHOSPHATASE 82 U/L (38-126); ANION GAP 20.8 MEQ/L (5-15); BLOOD UREA NITROGEN 7 mg/dL (9-20); CHLORIDE 99 mmol/L (98-107); Calcium 9.7 mg/dL (8.4-10.2); Carbon Dioxide 23 mmol/L (22-30); Creatinine 1 0.86 mg/dL (0.66-1.25); EST GLOMERULAR FILTRATION RATE > 60.0 ML/MIN; Glucose 119 mg/dL (74-106); MAGNESIUM 1.9 mg/dL (1.6-2.3); NT PRO BNP 39.1 pg/mL (0-450); Potassium 4.2 mmol/L (3.5-5.1); SGOT/AST 31 U/L (17-59); SGPT/ALT 59 U/L (0-50); SODIUM 138 mmol/L (137-145); Total Protein 8.7 g/dL (6.3-8.2)
[2021-06-29] MEDS ORDERED: ROCEPHIN 2 Gm-D5w 50ML BAG** 2 G/50 ML IVPB IV STA (21:15)
[2021-06-29] MEDS ORDERED: Zithromax 500 MG/ 250 ML NaCl Premix 500 MG/250 ML IVPB IV STA (21:16)
[2021-06-29] MEDS ORDERED: Sodium Chloride 0.9% 1000 ML 1,000 ML IV STA (21:17)
[2021-06-29] MEDS ORDERED: Zithromax 500 MG/ 250 ML NaCl Premix 500 MG/250 ML IVPB IV ONE (21:18)
[2021-06-29] MEDS ORDERED: Sodium Chloride 0.9% 1000 ML 1,000 ML ONE (21:18)
[2021-06-29] MEDS ORDERED: ROCEPHIN 2 Gm-D5w 50ML BAG** 2 G/50 ML IVPB IV ONE (21:18)
[2021-06-29 21:22] LABS: A-aADO2 617; ABG POTASSIUM 4.2 (3.5-5.1); ARTERIAL BLD GAS O2 SATURATION 95.4 % (95-100); ARTERIAL BLOOD GAS BASE EXCESS -2.1 (-2.0-2.0); ARTERIAL BLOOD GAS FIO2 100 %; ARTERIAL BLOOD GAS PCO2 26 mmHg (35-45); ARTERIAL BLOOD GAS PO2 64 mmHg (75-100); ARTERIAL BLOOD GAS pH 7.49 (7.35-7.45); CARBON DIOXIDE 20 mEq/L (23-27); HCO3- 19.8 (22-28)
[2021-06-29 21:23] LABS: ABG SITE RIGHT RADIAL; ALLEN TEST OK? YES; CARBOXYHEMOGLOBIN 2.9 % THgb (0.0-6.9); HGB O2 SAT 91.7 g/dF (94-100)
--- NOTE | 2021-06-29 22:35 | XRAY ---
Indication: Short of breath. Comparison: January 22, 2018. Portable apical lordotic chest demonstrates new left perihilar interstitial alveolar opacity. Remaining heart and lungs unremarkable. Bony thorax intact.
[2021-06-29] MEDS ORDERED: Zofran 4 MG/2 ML VIAL IV PRN (23:29)
[2021-06-29] MEDS ORDERED: TYLENOL 325 MG PO PRN (23:29)
[2021-06-30] MEDS: solu-MEDROL 60 MG, Sterile H2O 10 ml 2 ML IV SCH ×4 (04:28→05:58)
[2021-06-30] MEDS: Sodium Chloride 0.9% 1000 ML 1,000 ML IV SCH ×2 (04:51→16:26)
[2021-06-30] MEDS: DUONEB 0.5-3 MG/3 ml Neb IH SCH ×6 (05:16→23:12)
[2021-06-30] MEDS ORDERED: solu-MEDROL ONE (05:55)
[2021-06-30] MEDS ORDERED: Sterile H2O 10 ml IJ ONE (05:56)
[2021-06-30 06:05] LABS: Absolute Neutrophil Ct (ANC) 19.91 (1.4-6.9); Basophil (Absolute #) 0.01 (0-0.4); Eosinophil (Absolute #) 0.01 (0-0.5); Hematocrit 49.5 % (42-50); Hemoglobin 16.2 gm/dl (12.5-18.0); Lymphocyte (Absolute #) 0.78 (1.0-4.6); Lymphocytes % 3.6 % (24.0-44.0); Mean Cell Volume 96.1 fl (78-100); Mean Corpuscular Hemoglobin 31.5 pg (26-32); Mean Corpuscular Hgb Concent. 32.7 g/dl (32-36); Mean Platelet Volume 10.3 fl (7.5-11.0); Monocyte (Absolute #) 0.78 (0.0-1.3); Monocytes % 3.6 % (0.0-12.0); Neutrophil % 92.8 % (36.0-66.0); Platelet Count 286 K/mm3 (150-450); Red Blood Count 5.15 M/mm3 (4.1-5.6); Red Cell Distribution Width 15.2 % (11.5-14.0); White Blood Count 21.5 K/mm3 (4.0-10.5)
[2021-06-30 06:32] LABS: ALBUMIN 4.7 g/dL (3.5-5.0); ALKALINE PHOSPHATASE 77 U/L (38-126); ANION GAP 18.1 MEQ/L (5-15); BLOOD UREA NITROGEN 9 mg/dL (9-20); CHLORIDE 104 mmol/L (98-107); Calcium 9.2 mg/dL (8.4-10.2); Carbon Dioxide 22 mmol/L (22-30); EST GLOMERULAR FILTRATION RATE > 60.0 ML/MIN; Glucose 154 mg/dL (74-106); Potassium 4.3 mmol/L (3.5-5.1); SGOT/AST 29 U/L (17-59); SGPT/ALT 40 U/L (0-50); SODIUM 140 mmol/L (137-145); Total Protein 7.8 g/dL (6.3-8.2)
--- NOTE | 2021-06-30 06:59 | XRAY ---
Indication: Short of breath. Low oxygenation. Pulmonary embolus. Multiple contiguous axial images obtained through the chest using 100 cc Isovue 370 contrast and PE protocol. Comparison: None There is suboptimal opacification of the pulmonary arteries and respiration artifact limiting evaluation for pulmonary embolus. No obvious large central pulmonary embolus. Heart is not enlarged. Aorta normal in course and caliber. No pathologic mediastinal/hilar lymphadenopathy. Lungs demonstrates moderate right lower lobe atelectasis. Mild right middle and lingula subsegmental atelectasis/scarring. Medial left upper lobe demonstrates moderate groundglass airspace disease. No effusion. Bony thorax intact. Limited upper abdomen demonstrates mild fatty liver and 2 cm left renal exophytic cyst. Impression: 1. Pulmonary embolus evaluation limited due to suboptimal contrast opacification and respiration artifact. No obvious central pulmonary embolus. 2. Medial left upper lobe groundglass airspace disease. 3. Right lower lobe atelectasis and right middle/lingula subsegmental atelectasis/scarring.. 4. Incidental fatty liver and left renal cyst. Comment: Preliminary interpretation made by [facility]. No critical discrepancy.
[2021-06-30] MEDS ORDERED: PHARMACY DOSING REQUEST MC ONE (08:51)
[2021-06-30] MEDS ORDERED: VENTOLIN COMMON CANISTER IH PRN (09:15)
[2021-06-30] MEDS: Advair Hfa 115/21 Common canister IH SCH ×2 (09:16→19:27)
[2021-06-30] MEDS: Aminophylline 500 MG/20 ML*** 500 MG in Sodium Chloride 0.9% 500 ML 480 ML IV SCH ×2 (09:26→21:10)
[2021-06-30] MEDS: PROTONIX 40 MG IV IV SCH (10:42)
[2021-06-30] MEDS: ENOXAPARIN SODIUM SQ SCH (10:43)
[2021-06-30] MEDS: solu-MEDROL 125 MG, Sterile H2O 10 ml 2 ML IV SCH ×4 (12:18→18:17)
[2021-06-30] MEDS: ROCEPHIN 1 Gm-D5w 50 ml Bag** 1 G/50 ML IVPB IV SCH (22:05)
[2021-06-30] MEDS: Zithromax 500 MG/ 250 ML NaCl Premix 500 MG/250 ML IVPB IV SCH (23:18)
[2021-07-01] MEDS: solu-MEDROL 125 MG, Sterile H2O 10 ml 2 ML IV SCH ×10 (00:22→23:58)
[2021-07-01] MEDS: DUONEB 0.5-3 MG/3 ml Neb IH SCH ×6 (03:12→22:47)
[2021-07-01] MEDS: Sodium Chloride 0.9% 1000 ML 1,000 ML IV SCH ×2 (05:40→15:43)
[2021-07-01 05:53] LABS: Hematocrit 45.2 % (42-50); Hemoglobin 14.3 gm/dl (12.5-18.0); Mean Cell Volume 98.7 fl (78-100); Mean Corpuscular Hemoglobin 31.2 pg (26-32); Mean Corpuscular Hgb Concent. 31.6 g/dl (32-36); Mean Platelet Volume 10.7 fl (7.5-11.0); Platelet Count 262 K/mm3 (150-450); Red Blood Count 4.58 M/mm3 (4.1-5.6); Red Cell Distribution Width 15.4 % (11.5-14.0); White Blood Count 24.1 K/mm3 (4.0-10.5)
[2021-07-01 06:04] LABS: ALBUMIN 3.8 g/dL (3.5-5.0); ALKALINE PHOSPHATASE 56 U/L (38-126); ANION GAP 15.5 MEQ/L (5-15); BLOOD UREA NITROGEN 13 mg/dL (9-20); CHLORIDE 109 mmol/L (98-107); Carbon Dioxide 21 mmol/L (22-30); Creatinine 1 0.74 mg/dL (0.66-1.25); EST GLOMERULAR FILTRATION RATE > 60.0 ML/MIN; Glucose 154 mg/dL (74-106); Potassium 3.5 mmol/L (3.5-5.1); SGOT/AST 20 U/L (17-59); SGPT/ALT 29 U/L (0-50); SODIUM 141 mmol/L (137-145); Total Protein 6.6 g/dL (6.3-8.2)
[2021-07-01] MEDS: Advair Hfa 115/21 Common canister IH SCH ×2 (06:51→18:36)
--- NOTE | 2021-07-01 09:09 | XRAY ---
Indication: Short of breath. Comparison: June 29, 2021. PA/lateral chest demonstrates worsening moderate left perihilar and new mild right base interstitial alveolar opacities with new tiny left effusion. Heart not enlarged. Bony thorax intact.
[2021-07-01] MEDS: Aminophylline 500 MG/20 ML*** 500 MG in Sodium Chloride 0.9% 500 ML 480 ML IV SCH (09:37)
[2021-07-01] MEDS: PROTONIX 40 MG IV IV SCH (09:43)
[2021-07-01] MEDS: ENOXAPARIN SODIUM SQ SCH (09:43)
--- NOTE | 2021-07-01 15:17 | HP ---
CHIEF COMPLAINT: Shortness of breath. HISTORY OF PRESENT ILLNESS: The patient is a 45 y/o WM patient with a history of asthma. Reported that he woke up yesterday and just couldn't breathe. He does have albuterol for use at home which does make him feel somewhat better, but he reports also he had cold symptoms recently and his is also ill. He reports that she was vaccinated and did test negative for COVID-19. The patient was having chest discomfort and dyspnea. He had used his inhaler multiple times without symptomatic relief. In the Emergency Room, was found to be significantly hypoxic and with bilateral wheezes that were pervasive to the chest. The patient was placed on O2 and give antibiotics and Solu-Medrol and nebulizer treatments and he was felt to need to stay in the hospital for further evaluation and management. The patient's medical history is otherwise essentially unremarkable other than he is a smoker. HOME MEDICATIONS: His only medications are albuterol and Breo Ellipta. ALLERGIES: HE HAS NKDA. The patient reports he has not been to see the doctor for quite some time because he had no insurance. He reports he did see me previously, but hasn't for years. VITAL SIGNS: The patient's vital signs on admission showed his BP to be 133/114, pulse rate was 138, respiratory rate was 34, O2 saturations was 80%. HEENT: Normocephalic and atraumatic. Pupils equal, round, and reactive to light. EOM intact. Oropharynx is pink and moist. The patient was wearing CPAP at the time I saw him. We removed it and monitored his O2 saturations which immediately fell down to 84-85 on room air. NECK: Supple without lymphadenopathy or thyromegaly. CHEST: Revealed bilateral wheezes and diminished air movement. HEART: Regular rate and rhythm without murmurs, rubs, or gallops. ABDOMEN: Soft. No palpable masses. EXTREMITIES: Without cyanosis, clubbing, or edema. NEURO: The patient is alert and oriented X 3 with no focal deficits. LABORATORY DATA: From the Emergency Room, revealed an ABG with a pH of 7.49, PCO2 26, and PO2 64. His WBC was 17,000, Hgb 17.4, platelet count 296,000. There did appear to be a left shift with 86% granulocytes. His d-dimer is negative at 439. His metabolic panel showed a sugar of 119 nonfasting, BUN 7, creatinine 0.86. Electrolytes were normal. Liver enzymes were slightly elevated with an SGPT of 59. NT Pro BNP was 39.1. Troponin was less than 0.012. COVID-19 test was reported as negative. The patient did have a CT scan of the chest. Pulmonary embolus evaluation was limited due to suboptimal contrast opacification and respiratory artifact and no obvious central pulmonary embolus was noted, medial left upper lobe revealed the ground glass air space disease, right lower lobe atelectasis and right middle/lingula segment atelectasis and scarring. Incidental liver and left renal cyst were noted. ASSESSMENT: PATIENT WITH APPARENTLY AT THIS POINT STATUS ASTHMATICUS. He has been admitted to the hospital on IV Solu-Medrol at 60 mg IV q 6 h, nebulizer treatments. He has also received Rocephin and Zithromax. We will increase his Solu-Medrol to 125 q 6 h. Will obtain a pulmonary consult. The patient reports he has seen Dr. Ceja in the past. We will continue his antibiotics and O2 as needed. He is currently on 6 liters with an O2 saturation of 88%. We will continue to increase his O2 as needed to keep his saturations at or above 90%.
[2021-07-01 15:19] LABS: ANISOCYTOSIS 1+; Lymphocytes 6 % (24-44); Monocyte 7 % (0.0-12.0); Neutrophils 87 % (36.-66.); Platelet Estimate NORMAL (NORMAL); Total Cells Counted 100; Toxic Granulation 1+
[2021-07-01] MEDS: ROCEPHIN 1 Gm-D5w 50 ml Bag** 1 G/50 ML IVPB IV SCH (21:05)
[2021-07-01] MEDS: Zithromax 500 MG/ 250 ML NaCl Premix 500 MG/250 ML IVPB IV SCH (21:39)
[2021-07-02] MEDS: DUONEB 0.5-3 MG/3 ml Neb IH SCH ×6 (02:44→22:54)
[2021-07-02] MEDS: Sodium Chloride 0.9% 1000 ML 1,000 ML IV SCH (03:09)
[2021-07-02] MEDS: solu-MEDROL 125 MG, Sterile H2O 10 ml 2 ML IV SCH ×2 (05:43)
[2021-07-02 05:54] LABS: Hematocrit 39.4 % (42-50); Hemoglobin 12.6 gm/dl (12.5-18.0); Mean Corpuscular Hemoglobin 31.3 pg (26-32); Mean Platelet Volume 10.8 fl (7.5-11.0); Platelet Count 269 K/mm3 (150-450); Red Blood Count 4.02 M/mm3 (4.1-5.6); Red Cell Distribution Width 15.4 % (11.5-14.0); White Blood Count 19.7 K/mm3 (4.0-10.5)
[2021-07-02 06:35] LABS: ALBUMIN 3.5 g/dL (3.5-5.0); ALKALINE PHOSPHATASE 47 U/L (38-126); ANION GAP 13.4 MEQ/L (5-15); BLOOD UREA NITROGEN 13 mg/dL (9-20); CHLORIDE 110 mmol/L (98-107); Calcium 8.9 mg/dL (8.4-10.2); Carbon Dioxide 22 mmol/L (22-30); Creatinine 1 0.65 mg/dL (0.66-1.25); EST GLOMERULAR FILTRATION RATE > 60.0 ML/MIN; Glucose 180 mg/dL (74-106); Potassium 3.4 mmol/L (3.5-5.1); SGOT/AST 23 U/L (17-59); SGPT/ALT 34 U/L (0-50); SODIUM 142 mmol/L (137-145); Total Protein 6.1 g/dL (6.3-8.2)
[2021-07-02] MEDS: Advair Hfa 115/21 Common canister IH SCH ×2 (07:07→18:50)
[2021-07-02 07:21] LABS: Lymphocytes 8 % (24-44); Monocyte 2 % (0.0-12.0); Neutrophils 90 % (36.-66.); Total Cells Counted 100
[2021-07-02 07:22] LABS: ANISOCYTOSIS 1+; Platelet Estimate NORMAL (NORMAL); Polychromasia RARE; Toxic Granulation 1+
[2021-07-02] MEDS: PROTONIX 40 MG IV IV SCH (11:20)
[2021-07-02] MEDS: ENOXAPARIN SODIUM SQ SCH (11:20)
[2021-07-02] MEDS: solu-MEDROL 80 MG, Sterile H2O 10 ml 2 ML IV SCH ×4 (14:04→21:20)
--- NOTE | 2021-07-02 15:24 | CONS ---
CONSULT DATE: 07/01/2021 HISTORY OF PRESENT ILLNESS: Mr. Simpson is a 45 y/o male with history of asthma who has been readmitted with complaints of cough, shortness of breath, and wheezing. He was sick for about 2-3 days prior to admission. He tested negative for COVID-19. Patient was noted to have significant bronchospasm and was started on high dose IV steroids despite which his symptoms continued. I recommended the patient be placed on IV Aminophylline drip which seems to have helped him. At the time of my evaluation, he is sitting in chair. He voices no new complaints. The patient has had history of asthma all his life. His last hospitalization was apparently 4 or 5 years ago. He usually uses Advair as a controller medication along with bronchodilators on rescue. PAST MEDICAL HISTORY: Besides bronchial asthma and allergic rhinitis, he denies common medical problems. PAST SURGICAL HISTORY: Negative. PERSONAL AND SOCIAL HISTORY: He is a former smoker of about 5 years ago. He is currently in between jobs. ALLERGIES: NKDA. CURRENT MEDICATIONS: Reviewed. PHYSICAL EXAMINATION: This is a middle-aged male who appears comfortable. Vital signs noted. HEENT: Normocephalic. Oral exam shows small oropharynx. NECK: Supple. CVS: 1st and 2nd heart sounds normal, regular rhythm. RESPIRATORY: Shows diminished breath sounds. Occasional rhonchi are heard. ABDOMEN: Obese. Trace edema is noted. LABORATORY DATA: WBC 24.1, Hgb 14.3, Hct 45, platelets 262. Theophylline level is 11.2. Lactic acid 4.0. Sodium 141, potassium 3.5, chloride 109, bicarb 21, glucose 154, BUN 13, creatinine 0.7. Chest x-ray showed congestive changes. CT chest negative for pulmonary embolus, left upper lobe ground glass seen, right lower lobe atelectasis along with fatty liver and left renal cyst. ASSESSMENT: This is a 45 y /o male admitted with: 1. BRONCHIAL ASTHMA WITH ACUTE EXACERBATION. 2. ALLERGIC RHINITIS. 3. OBESITY. 4. FORMER SMOKER. RECOMMENDATIONS: 1. Doing well from pulmonary standpoint. 2. May need aminophylline drip after current bag is over. 3. Reduce steroids. 4. Increase ambulation. 5. Continue other supportive care. 6. Advised to follow-up with me in outpatient setting. 7. PFT as outpatient. Thank you for allowing me to participate in the care of this patient.
[2021-07-02] MEDS: ROCEPHIN 1 Gm-D5w 50 ml Bag** 1 G/50 ML IVPB IV SCH (21:20)
[2021-07-02] MEDS: Zithromax 500 MG/ 250 ML NaCl Premix 500 MG/250 ML IVPB IV SCH (21:57)
[2021-07-03] MEDS: DUONEB 0.5-3 MG/3 ml Neb IH SCH ×2 (04:16→05:01)
[2021-07-03] MEDS: Advair Hfa 115/21 Common canister IH SCH (05:01)
[2021-07-03 05:02] LABS: Mean Cell Volume 98.8 fl (78-100); Mean Corpuscular Hemoglobin 31.3 pg (26-32); Mean Corpuscular Hgb Concent. 31.7 g/dl (32-36); Mean Platelet Volume 10.3 fl (7.5-11.0); Platelet Count 234 K/mm3 (150-450); Red Blood Count 4.15 M/mm3 (4.1-5.6); Red Cell Distribution Width 15.7 % (11.5-14.0); White Blood Count 16.6 K/mm3 (4.0-10.5)
[2021-07-03 05:05] VITALS: PULSE 68
[2021-07-03] MEDS: solu-MEDROL 80 MG, Sterile H2O 10 ml 2 ML IV SCH ×2 (05:05)
[2021-07-03 05:27] LABS: ALBUMIN 3.4 g/dL (3.5-5.0); ALKALINE PHOSPHATASE 54 U/L (38-126); ANION GAP 12.5 MEQ/L (5-15); BLOOD UREA NITROGEN 15 mg/dL (9-20); CHLORIDE 106 mmol/L (98-107); Calcium 8.7 mg/dL (8.4-10.2); Carbon Dioxide 24 mmol/L (22-30); Creatinine 1 0.71 mg/dL (0.66-1.25); EST GLOMERULAR FILTRATION RATE > 60.0 ML/MIN; Glucose 167 mg/dL (74-106); Potassium 3.8 mmol/L (3.5-5.1); SGOT/AST 92 U/L (17-59); SGPT/ALT 122 U/L (0-50); SODIUM 139 mmol/L (137-145); Total Protein 5.9 g/dL (6.3-8.2)
[2021-07-03 06:19] LABS: BAND 4 % (0.0-2.0); Lymphocytes 11 % (24-44); Monocyte 3 % (0.0-12.0); Neutrophils 82 % (36.-66.); Platelet Estimate NORMAL (NORMAL); Total Cells Counted 100
[2021-07-03 07:50] VITALS: BP 122/76; O2SAT 94
--- NOTE | 2021-07-05 16:11 | DS ---
DISCHARGE DIAGNOSIS: 1. STATUS ASTHMATICUS AND HYPOXIA. CONSULTANTS: Dr. Ceja. BRIEF HISTORY: The patient is a 45 y/o [facility] patient who has history of asthma. He was having trouble over the past couple three days prior to his admission to the hospital at which time he became hypoxic and with an increased respiratory rate and the patient was brought to the Emergency Room and then admitted to the hospital for further evaluation and management. HOSPITAL COURSE: The patient was admitted to the [facility] where he received IV Rocephin and Zithromax for the possibility of bacterial infection. He was given high dose steroid medications of Solu-Medrol 125 q 6 h. He was somewhat slow to respond. He was somewhat better after admission, but continued to have wheezing basically the whole time he was here, but each day was a little bit better. The patient was seen by Dr. Ceja who added Theophylline. He got an aminophylline drip for a day and then he was discontinued on this medication the next day. We continued to be able to reduce the IV steroid medication to Solu-Medrol 80 q 8 which he tolerated. The day prior to discharge, he ran saturations between 94-90% on room air. His BP remained stable. His respiratory rate running between 16 and 24. Pulse rate running between 68 and 104. The patient's WBC had elevated to over 24,000. On the day of discharge, it was down to 16,600. Platelet count was at 234 and Hgb was 13.0. His metabolic panel showed his sugar 167 fasting, BUN 15, creatinine 0.71. Liver enzymes and electrolytes were normal. The patient's chest x-ray did show on 06/29/2021 moderate left perihilar and right base interstitial alveolar opacities. On discharge, the patient was given prescriptions for Prednisone at 60 mg q d for 5 days, 40 for 5 days, and then 20 for 5 days. We will set up an appointment for him to see Dr. Ceja in the next coming week. He will see me in 3-4 weeks or sooner if he has any additional problems. He was also asked if he had the albuterol and nebulizer machines at home which he responded he did and had plenty of medication. He was discharged home additionally with Augmentin 875 bid for an additional 10 days.
== END 2021-07-03 09:24 | disposition home or self-care (01) | DRG 203 ==
LOC: ED 19:59 → ICU 23:25 → MED SURG 07-02 05:50
PROVIDERS: ADMIT Family Medicine; ATTEND Family Medicine
DX: J45.902 Unspecified asthma with status asthmaticus (principal); R05 Cough; R07.9 Chest pain, unspecified; Z79.899 Other long term (current) drug therapy; Z20.822 Contact with and (suspected) exposure to COVID-19
CPT/HCPCS: 36000; 36415; 36600; 71045; 71046; 71260; 80053; 80198; 82375; 82803; 83605; 83735; 83880; 84484; 85025; 85379; 87040; 93005; 93041; 94002; 94003; 94640; 94667; 94760; 96374; 99285; 99291; J0280; J0456; J0696; J1650; J2930; U0003; A9270-GY